=== PATIENT | female | born 1975 | race Asian ===

== ENCOUNTER 2023-09-25 22:59 | Emergency (ER) | payer BC, SELFPAY ==
[2023-09-25 23:02] VITALS: BP 148/94
--- NOTE | 2023-09-26 00:03 | ED.GENMED ---
History of Present Illness
General
Chief Complaint: Abdominal Pain
Time Seen by Provider: 09/25/23 23:28
History of Present Illness
History of Present Illness:
47-year-old female with history of endometriosis and ovarian cyst presenting to the emergency department for acute onset of left lower quadrant abdominal pain. Patient reports symptoms started about an hour prior to arrival. Pain is in the left
lower quadrant of the abdomen. Reports that her last menstrual period was September 03. She usually starts to get her endometriosis pain about a week prior to menstrual cycle. She tried Tylenol at home without relief. Denies any abnormal discharge.
Reports nausea without vomiting. Denies any changes in stool. Denies chest pain or difficulty breathing. Denies any abdominal surgeries in the past. Reports that this feels like her endometriosis, however is worse than usual. Denies additional
acute medical complaints
Past History
Past History
ED Past Medical History: HTN
ED Past Surgical History: None
Social History
Tobacco: Non-smoker
Alcohol: Occasional
Drug: None
Personal:
Living: with family
Employment: Employed
Phy Exam
Physical Exam
Physical Exam:
General: Well-appearing, no clinical signs of dehydration, nontoxic and in no acute distress
HEENT: protecting airway
Neck: appears supple
CV: Normal heart rate, regular rhythm
Resp: No accessory muscle use, no increased work of breathing, lungs clear to auscultation bilaterally
Abd: Soft and non-distended, reproducible tenderness to suprapubic and left lower quadrant
Extremities: No deformities, no swelling, no erythema
Neuro: alert, no focal neurologic deficit
: deferred
Rectal: deferred
Psych: Normal affect
Skin: Intact
Course
Orders/Labs/Results
Orders:
Orders
09/25/23 23:50
0.9% Sodium Chloride 1000 ml [Nss] 1,000 ml IV BOLUS
Ketorolac [Toradol] 15 mg IV NOW STA
Ondansetron Injectable [Zofran] 4 mg IV NOW STA
09/26/23 00:32
Test Result ONCE
09/26/23 00:34
Complete Blood Count/With Diff Urgent
Comprehensive Metabolic Panel Urgent
HCG, Serum Qualitative Screen Urgent
Urinalysis Reflex To Culture Urgent
Date Specimen was Collected: 09/26/23
Time Specimen was Collected: 00:32
Urine Microscopic Reflex Cult Urgent
09/26/23 23:59
US Pelvis W Transvag Combined Urgent
Reason For Exam: L-pelvic pain, hx cysts
Abnormal Lab Results
09/26/23
00:34
Absolute Neuts (auto) 7.1 H 10^3/uL
(1.4-6.5)
Neutrophils % 77.5 H %
(42.2-75.2)
Lymphocytes % 16.6 L %
(20.5-51.1)
Sodium 134 L mmol/L
(135-145)
BUN 24 H mg/dl
(7-17)
Glucose 139 H mg/dl
(70-99)
Calcium 10.3 H mg/dl
(8.4-10.2)
Ur Occult Blood Reflex 2+ A
(Negative)
Urine RBC 11-15 A /HPF
(0-2)
Urine Bacteria (Reflex) Few A
(Negative)
09/26/23 00:34
09/26/23 00:34
Vital Signs
Initial and Last Documented VS:
Initial Vital Signs
Temp Pulse Resp BP Pulse Ox
98.8 F 111 18 148/94 100
09/25/23 23:02 09/25/23 23:02 09/25/23 23:02 09/25/23 23:02 09/25/23 23:02
Last Documented Vital Signs
Temp Pulse Resp BP Pulse Ox
98.8 F 107 18 126/75 98
09/25/23 23:02 09/26/23 00:46 09/26/23 00:46 09/26/23 00:46 09/26/23 00:46
MDM/Problems Addressed
MDM/Problems Addressed:
47-year-old female with history of endometriosis and ovarian cyst presenting for acute onset of left lower quadrant pain. Vital signs on arrival significant for mild tachycardia.
On exam, patient in no acute distress, slightly uncomfortable secondary to pain. Reproducible tenderness to the suprapubic abdomen and the left lower quadrant. Differential considerations include endometriosis versus ovarian torsion versus
ruptured ovarian cyst. Diverticulitis is also a consideration, however given acute nature and absence of additional systemic symptoms, less likely. Will treat patient's symptoms with Zofran and Toradol. Will obtain ultrasound imaging, laboratory
analysis, urinalysis.
02:30 -patient's labs are unremarkable. Urine shows some blood, otherwise no signs of infection. Ultrasound does show signs of endometriosis, normal blood flow. On reassessment, patient reports that her pain has significantly improved. At this
time no torsion. Continue to suspect endometriosis a source of pain. Feel stable for discharge with outpatient gynecologic follow-up. Ibuprofen prescribed. Return precautions discussed and patient verbalized understanding.
*Critical Care Note
Total Time (30-74mins, 75-104mins- exclusive of procedures): Not Applicable
ED Attending Note
-
Portions of this chart may have been created with voice recognition software.� Occasional wrong word or��sound alike� substitutions may have occurred due to the inherent limitations of voice recognition software.
Discharge Plan
Departure
Prescriptions:
No Action
cyclobenzaprine 5 mg tablet
5 mg PO BID PRN (Reason: muscle spasm) Qty: 12 0RF
Referrals:
Douglas Warren, [Family Provider] -
Interventions
Interventions:
*General Assessment Last Done: 09/26/23 00:49
*Neglect/Abuse Screening Last Done: 09/26/23 00:49
*ED COVID-19 Vaccine History Last Done: 09/26/23 00:49
JD-Zwcsau-Zxrjowobod Assessment Last Done: 09/26/23 00:49
Discharge Date and Time
Print Language: TAJIK
[2023-09-26] MEDS: TORADOL 15 MG IV (00:06)
[2023-09-26] MEDS: ZOFRAN 4 MG IV (00:06)
[2023-09-26] MEDS: NSS 1000 IV (00:06)
[2023-09-26 00:45] VITALS: BMI 23.1
[2023-09-26 00:46] VITALS: BP 126/75
[2023-09-26 00:50] LABS: % Basophils 0.3 % (0-2); % Eosinophils 0.3 % (0-6); % Immature Granulocytes 0.2 % (0-0.5); % Lymphocytes 16.6 % (20.5-51.1); % Monocytes 5.1 % (1.7-9.3); % Neutrophils 77.5 % (42.2-75.2); Absolute Lymphocytes 1.5 10^3/uL (1.2-3.4); Absolute Monocytes 0.5 10^3/uL (0.1-0.6); Absolute Neutrophils 7.1 10^3/uL (1.4-6.5); Hematocrit 39.2 % (37.0-47.0); Hemoglobin 14.1 g/dL (12.0-16.0); Mean Corpuscular Hgb 29.6 pg (27.0-31.0); Mean Corpuscular Volume 82.4 fL (81.0-99.0); Mean Platelet Volume 10.1 fL (7.4-10.4); Nucleated Red Blood Cells % 0 %; Platelet Count 331 10^3/uL (130-400); Red Blood Cell Count 4.76 10^6/uL (4.20-5.40); Red Cell Dist. Width 12.4 % (11.5-14.5); White Blood Cell Count 9.2 10^3/uL (4.8-10.8)
[2023-09-26 00:51] LABS: HCG, Serum Qualitative Screen Negative
[2023-09-26 00:54] LABS: ALT (SGPT) 15 U/L (0-35); AST (SGOT) 29 U/L (14-36); Albumin 4.6 g/dl (3.5-5.0); Alkaline Phosphatase 69 U/L (38-126); Blood Urea Nitrogen 24 mg/dl (7-17); Calcium 10.3 mg/dl (8.4-10.2); Carbon Dioxide 27 mmol/L (22-30); Chloride 100 mmol/L (98-107); Estimated Creatinine Clearance 107 ml/min; Glucose 139 mg/dl (70-99); Potassium 3.8 mmol/L (3.5-5.1); Sodium 134 mmol/L (135-145); Total Bilirubin 0.6 mg/dl (0.2-1.3); Total Protein 7.2 g/dl (6.3-8.2); eGFR > 60.00
[2023-09-26 01:03] LABS: Urine Albumin Negative (Neg - Trace); Urine Bilirubin Negative (Negative); Urine Character Clear (Clear); Urine Color Yellow; Urine Glucose Negative (Negative); Urine Ketone Negative (Negative); Urine Leukocyte Negative (Negative); Urine Nitrite Negative (Negative); Urine Occult Blood 2+ (Negative); Urine Urobilinogen 1+ (Neg - 1+)
[2023-09-26 01:56] LABS: Urine Squamous Cell >30 /LPF (Few)
[2023-09-26 02:00] LABS: Urine Bacteria Few (Negative); Urine Mucus Few
== END 2023-09-26 02:47 | disposition home or self-care (01) ==
LOC: EMR 22:59
PROVIDERS: EMERGENCY PHYSICIAN Student in an Organized Health Care Education/Training Program; FAMILY PHYSICIAN Family Medicine
DX: R10.32 Left lower quadrant pain (principal); N80.9 Endometriosis, unspecified; I10 Essential (primary) hypertension
CPT/HCPCS: 99284; 96374; 96375; 76830; 76856; 80053; 81003; 81015; 84703; 85025